=== PATIENT | female | born 1990 | race Caucasian/White ===

== ENCOUNTER 2016-06-17 09:54 | Emergency (ER) | payer OTHER ==
[2016-06-17 10:51] VITALS: BP 113/71
--- NOTE | 2016-06-17 15:01 | UC ---
Yolande Cruz Matthew, scribed for Alyson Chandra DO on 06/17/16 at 1142 . Abdominal Pain Female HPI - HPI Summary HPI Summary: A 26 y/o female presents to [facility] with right sided abdominal pain for the last 2 days. The pain sitting is rated 0/10 in severity. The pain with touching and twisting is rated 4/10 in severity. The pain is worse with eating. Occasionally , she also has muscle spams in the same region. These symptoms started intermittently after having her child ~1.5 years ago. She states her abdomen feels as if there is "trapped gas." For this pain, the patient has been taking TUMS and antacids possibly with mild relieve. She also went to [place] a month ago, where she had an US of this region that returned inconclusive. Associated symptoms include distension of the lower abdomen. The patient denies back pain, fever, chills, diaphoresis, nausea, vomiting, dysuria, urinary symptoms, and chest pain. - History of Current Complaint Chief Complaint: UCAbdominalPain Stated Complaint: ABDOMINAL PAIN Time Seen by Provider: 06/17/16 10:58 Hx Obtained From: Patient Hx Last Menstrual Period: 05/26/16 ?: No Onset/Duration: Lasting Days, Still Present Severity Initially: Mild Severity Currently: Mild Pain Intensity: 4 - with palp Pain Scale Used: 0-10 Numeric Location: Discrete At: RUQ Radiates: No Character: Cramping Aggravating Factor(s): Movement, Other: - touch, twisting Alleviating Factor(s): Nothing Associated Signs and Symptoms: Negative: Diaphoresis, Fever, Chest Pain, Back Pain, Urinary Symptoms, Nausea, Vomiting, Diarrhea Allergies/Adverse Reactions: Allergies Allergy/AdvReac Type Severity Reaction Status Date / Time No Known Allergies Allergy Verified 12/06/14 08:07 Home Medications: Home Medications Multiple Vitamins W/ Minerals [Multivitamin Women] 1 tab PO 06/17/16 [History] Sertraline HCl [Zoloft] 100 mg PO 06/17/16 [History] PMH/Surg Hx/FS Hx/Imm Hx Endocrine History Of: Denies: Diabetes, Thyroid Disease Cardiovascular History Of: Denies: Cardiac Disorders, Hypertension Respiratory History Of: Denies: COPD, Asthma GI/ History Of: Denies: Ulcer Psychological History Of: Reports: Anxiety - Surgical History Surgical History: None - Family History Known Family History: Positive: Hypertension, Diabetes, Other - FHx of Breast CA Negative: Cardiac Disease - Social History Lives: With Family Alcohol Use: None Substance Use Type: None Smoking Status (MU): Never Smoked Tobacco - Immunization History Most Recent Influenza Vaccination: Had Fall 2013 (@ [facility]) Most Recent Tetanus Shot: 10/14/14 Most Recent Pneumonia Vaccination: none Review of Systems Constitutional: Negative Skin: Negative Eyes: Negative ENT: Negative, Dental Pain Respiratory: Negative Cardiovascular: Negative Gastrointestinal: Abdominal Pain, Other - distention of the lower abdomen Genitourinary: Negative Motor: Negative Neurovascular: Negative Musculoskeletal: Negative Neurological: Negative Psychological: Negative All Other Systems Reviewed And Are Negative: Yes Physical Exam Triage Information Reviewed: Yes Appearance: Well-Appearing, No Pain Distress, Well-Nourished Vital Signs: Initial Vital Signs Temp 99.4 F 06/17/16 10:47 Pulse 67 06/17/16 10:47 Resp 18 06/17/16 10:47 BP 113/71 06/17/16 10:47 Pulse Ox 100 06/17/16 10:47 Vital Signs Reviewed: Yes Eyes: Positive: Conjunctiva Clear. Negative: Discharge ENT: Positive: Hearing grossly normal. Negative: Muffled/hoarse voice Dental Exam: Normal Neck: Positive: Supple, Nontender Respiratory: Positive: Lungs clear, Normal breath sounds, No respiratory distress, No accessory muscle use Cardiovascular: Positive: RRR, No Murmur Abdomen Description: Positive: Soft, Other: - Psoas point tenderness that pt identifies as the pain in question; relieved by shortening psoas.. Negative: CVA Tenderness (R), CVA Tenderness (L), Distended, Guarding Musculoskeletal Exam: Normal Neurological: Positive: Alert, Muscle Tone Normal Psychological Exam: Normal Psychological: Positive: Age Appropriate Behavior Skin Exam: Normal Skin: Positive: Other - warm, dry, normal color Abd Pain Female Course/Dx - Differential Dx/Diagnosis Differential Diagnosis: Constipation, Irritable Bowel Syndrome, , Renal Colic Provider Diagnoses: muscle spasm Discharge - Discharge Plan Condition: Stable Disposition: HOME Patient Education Materials: Muscle Spasm (ED) Referrals: Brenden Farah CNM [Primary Care Provider] - If Needed (IF YOUR PROBLEM PERSISTS , YOU MAY WANT TO REQUEST PHYSICAL THERAPY. ) Additional Instructions: YOU WOULD LIKELY BENEFIT FROM OSTEOPATHIC MANIPULATION. WE RECOMMEND THAT YOU FIND AN OSTEOPATHIC PHYSICIAN IN YOUR AREA WHO DOES LYMPHATIC, MYOFASCIAL AND VISCERAL WORK. The documentation as recorded by the Yolande gould Matthew accurately reflects the service I personally performed and the decisions made by , Alyson Chandra DO.
== END 2016-06-17 12:03 | disposition home or self-care (01) ==
LOC: UCEAST 09:54
DX: M62.838 Other muscle spasm (principal)
CPT/HCPCS: 81002; 81025; 99211; G0463

== ENCOUNTER 2018-12-23 07:41 | Inpatient (IN) | payer OTHER ==
[2018-12-23] MEDS ORDERED: Oxytocin in LR* 20 UNITS/1,000 ML BAG IVPB ONE (08:37)
[2018-12-23] MEDS ORDERED: Buffered Lidocaine 1% SYRIN* 1 ML/SYRINGE INTRADERM ONE (08:45)
[2018-12-23] MEDS ORDERED: Lactated Ringers 1000 ML Bag* 1,000 ML IV ONE (08:45)
--- NOTE | 2018-12-23 08:59 | HP ---
General Information - Reason for Visit Post dates for induction - General Information Maternal Age: 28 Grav: 2 Para: 1 SAB: 0 IEA: 0 Estimated Due Date: 12/16/18 Determined By: Early Ultrasound Maternal Blood Type and Rh: O Positive - Results this Serology/RPR Result: Non-Reactive Rubella Result: Immune HBsAg Result: Negative HIV Result: Negative GBS Culture Result: Negative Past Medical History Delivery History: Hx Uncomplicated Vaginal Delivery - SVB 11/2014 Pertinent Past Medical History: See Records Past Medical History Comment: Anxiety, previously on medicine, well managed now Migraines, none recently Pertinent Past Surgical History: None Pertinent Family History: Non-Contributory Family History Comment: HTN hypercholesteremia depression anxiety migraine Maternal grandmother diabetes, breast cancer - Antepartal Records Antepartal Records: Reviewed, Complicated by: - Left breast lump, sono WNL Review of Systems Constitutional: Comfortable CV Complaint: No Respiratory: Shortness of Breath: No Gastrointestinal: No Nausea/Vomiting, Soft Stool Genitourinary: No Dysuria, No Bleeding, No Leaking Fluid Musculoskeletal: No Complaint Neurological: No Headache, No Visual Changes Movement: Normal Exam Allergies/Adverse Reactions: Allergies No Known Allergies Allergy (Verified 12/06/14 08:07) BP 112/76 T 97.4 HR 73 RR 18 O2 100 - Measurements Height: 5 ft 7 in Weight: 159 lb Weight in lbs: [id number] Body Mass Index (BMI): 24.9 Pre- Weight: 125 lb Weight Gained This : 34 lbs and 0 ozs - Exam Breast: Breast Exam Deferred CVA: No CVA Tenderness Extremities: No Edema Heart: Normal Rhythm/Heart Sounds HEENT: No Significant Findings Lungs: Clear Bilaterally Rectal: Rectal Exam Deferred Reflexes: DTR 2+, - - no clonus Thyroid: - - WNL @ entry to care - Abdominal Exam Abdomen Exam: Non-Tender, Fundal Height Consistent with Dates - Ultrasound/Biophysical Profile Ultrasound Status: Not Done Targeted Exam Findings Estimated Weight: 7.5-8lb Cervical Exam: 1cm, 2cm Effacement: 70% Station: 0 Presenting Part: Vertex Membrane Status: Intact Bleeding/Discharge: Bloody Show EFM Findings - External Monitor Findings Baseline Heart Rate: 140 External Monitor Findings: Accelerations Present, No Pattern of Variable or Late Decelerations, Variability Moderate Contractions: Irregular, Mild, < 45 Seconds Contraction Frequency: q 3-6 Assessment/Plan - Assessment IUP @ 41+0 weeks gestation for induction of labor. IBOW. No evidence metabolic acidemia - Plan Plan: Induction, Admit - Anticipate Vaginal Delivery Plan Comment: PARQ discussion pitocin for labor induction, patient in agreement. Encouraged movement and position changes. Anticipate SVB. - Date/Time of Admission Date of Admission: 12/23/18 Time of Admission: 08:45
[2018-12-23] MEDS ORDERED: Lactated Ringers 1000 ML Bag* 1,000 ML IV SCH (09:00)
[2018-12-23] MEDS ORDERED: Oxytocin in LR* 20 UNITS/1,000 ML BAG IVPB SCH (09:00)
[2018-12-23 09:10] LABS: ABS Lymphocytes 1.1 10^3/ul (1.0-4.8); ABS Monocytes 0.6 10^3/ul (0-0.8); ABS Neutrophils 7.2 10^3/ul (1.5-7.7); Eosinophil % 0.5 %; Hematocrit 39 % (35-47); Hemoglobin 13.9 g/dL (12.0-16.0); Lymphocyte % 12.3 %; Mean Corpuscular HGB Conc 36 g/dL (31-36); Mean Corpuscular Hemoglobin 33 pg (27-31); Mean Corpuscular Volume 91 fL (80-97); Platelet Count 153 10^3/uL (150-450); Red Blood Count 4.24 10^6 /uL (3.70-4.87); Red Cell Distribution Width 13 % (10-15); White Blood Count 9.1 10^3/uL (3.5-10.8)
[2018-12-23 09:38] LABS: Urine Benzodiazepine Screen None Detected (None Detect); Urine Opiates Screen None Detected (None Detect)
--- NOTE | 2018-12-23 14:48 | PN ---
Progress Note - Progress Note Date of Service: 12/23/18 Note: S: Patient reports feeling contractions a little stronger, like "intense menstrual cramps". Ate lunch, walking halls. O: Pit @ 16 UCs q 2-4 min FHT 130, Cat 1 A: IUP for induction, not in active labr P: Continue pitocin titration. Anticipate SVB
--- NOTE | 2018-12-24 00:53 | PN ---
Progress Note - Progress Note Date of Service: 12/24/18 Note: S: Patient has been in tub with good relief. States contractions feeling somewhat stronger. Feeling frustrated with slow pace of induction and wondering about AROM vs IV pain medication for rest/sleep. Worried that she won't "like how it feels" with narcotic medication however. O: VE 3/90/0 Pit @ 8 UCs q 2-3 min FHT 125-130, difficult to trace in tub with use of jets but Cat 1 after exiting tub VSS, afebrile A: IUP @ 41+1 weeks gestation for induction of labor, in early labor No evidence metabolic acidemia P: PARQ discussion with patient and of AROM to augment labor. Though she is worried about the pain, is in agreement with assurance can opt for epidural at any time she desires. AROM performed with clear, blood tinged fluid. Plan to rest or get up and move as desired. Call for epidural when uncomfortable. Anticipate SVB
[2018-12-24] MEDS ORDERED: OBEPIDURAL* 250 ML EPIDURAL ONE (01:33)
[2018-12-24] MEDS ORDERED: Lactated Ringers 1000 ML Bag* 1,000 ML IV ONE (01:52)
[2018-12-24] MEDS ORDERED: Lactated Ringers 1000 ML Bag* 500 ML IV PRN ×2 (01:52)
[2018-12-24] MEDS ORDERED: Phenylephrine 40 MCG/ML SYRINGE IV PUSH PRN ×2 (01:52)
[2018-12-24] MEDS ORDERED: Sodium Citrate/Citric Acid* 15 ML UDC PO PRN (01:52)
[2018-12-24] MEDS ORDERED: Famotidine TAB* 20 MG PO PRN (01:52)
[2018-12-24] MEDS ORDERED: Lactated Ringers 1000 ML Bag* 1,000 ML IV SCH ×3 (02:00→07:00)
[2018-12-24] MEDS ORDERED: OBEPIDURAL* 250 ML EPIDURAL SCH (02:00)
[2018-12-24] MEDS ORDERED: Lidocaine 2% w/ EPI 1:200,000* 20 ML VIAL ONE (02:30)
[2018-12-24] MEDS ORDERED: Acetaminophen TAB* 325 MG PO PRN (06:52)
[2018-12-24] MEDS ORDERED: Dibucaine 1% 28.35 GM TUBE PR PRN (06:52)
[2018-12-24] MEDS ORDERED: Witch Hazel PAD* JAR TOPICAL PRN (06:52)
[2018-12-24] MEDS ORDERED: Glycerin ADULT SUPP PR PRN (06:52)
[2018-12-24] MEDS ORDERED: Oxytocin in LR* 20 UNITS/1,000 ML BAG IVPB SCH (07:00)
--- NOTE | 2018-12-24 07:41 | PROCNOTE ---
[facility] OB: Delivery Note - Delivery A Date of : 12/24/18 Time of : 06:16 Ailey Sex: Male - "Lan" Score 1 Minute: 8 Score 5 Minutes: 9 Gestational Age in Weeks and Days at Delivery: 41 Weeks and 1 Days Delivery Method: Spontaneous Vaginal Labor: Spontaneous Did Patient attempt ?: N/A, No Previous Amniotic Fluid: Clear Estimated Blood Loss: 250 Anesthesia/Analgesia: CEI for Labor Delivered By: Cookie Pink - Nursery Level of Nursery: Regular/Bedside - Perineum Perineal Injury Comment: labial lac, repaired Perineal Repair: By Delivering Practioner - Events Delivery Events of Note: Pitocin During Labor - Additional Delivery Notes Additional Delivery Notes: Patient admitted for postdates induction. Pitocin lead to active labor. Patient received epidural as desired after amniotomy. Total length of active labor 6'36 ", pushed 32 min. Baby born OA to CHAVO @ 0616 with shoulders following steadily with maternal efforts. Nuchal cord unwrapped after delivery. Baby to maternal abdomen with spontaneous cry and HR >110. Cord doubly clamped and cut by FOB once pulsations ceased. Placenta delivered with gentle cord traction @ 0621 in [place] presentation. Noted to have 3VC, membranes appearing intact. Fundus firm to massage and with pitocin infusing. Small right labial lac repaired with 2 stitches of 4-0 Vicryl. Mother and baby both stable. Planning to breastfeed.
[2018-12-24] MEDS ORDERED: Docusate CAP* 100 MG ONE (08:18)
[2018-12-24] MEDS ORDERED: Ibuprofen TAB* 600 MG ONE (08:19)
[2018-12-24] MEDS: Docusate CAP* 100 MG PO SCH ×3 (08:21→20:37)
[2018-12-24] MEDS: Ibuprofen TAB* 600 MG PO PRN ×3 (08:22→20:37)
[2018-12-24] MEDS ORDERED: Lidocaine 1% INJ* 10 MG/ML 30 ML SDV ONE (12:21)
[2018-12-25] MEDS: Ibuprofen TAB* 600 MG PO PRN ×2 (05:12→11:56)
[2018-12-25] MEDS: Docusate CAP* 100 MG PO SCH (07:43)
[2018-12-25 07:52] VITALS: BP 110/64
[2018-12-25] MEDS ORDERED: Ferrous Gluconate TAB* 324 MG TAB PO SCH (09:00)
[2018-12-25 09:52] LABS: ABS Lymphocytes 1.1 10^3/ul (1.0-4.8); ABS Monocytes 0.4 10^3/ul (0-0.8); ABS Neutrophils 6.8 10^3/ul (1.5-7.7); Eosinophil % 0.6 %; Hematocrit 33 % (35-47); Hemoglobin 11.5 g/dL (12.0-16.0); Mean Corpuscular HGB Conc 35 g/dL (31-36); Mean Corpuscular Hemoglobin 32 pg (27-31); Mean Corpuscular Volume 93 fL (80-97); Mean Platelet Volume 9.1 fL (7.4-10.4); Platelet Count 138 10^3/uL (150-450); Red Blood Count 3.58 10^6 /uL (3.70-4.87); Red Cell Distribution Width 13 % (10-15); White Blood Count 8.3 10^3/uL (3.5-10.8)
== END 2018-12-25 13:25 | disposition home or self-care (01) | DRG 807 ==
LOC: MCHOBOUT 07:41 → MCHOB 08:41
PROVIDERS: ADMIT Midwife; ATTEND Midwife
PROC: 10E0XZZ Delivery of Products of Conception, External Approach (ICD-10-PCS; principal; 2018-12-24)
PROC: 10907ZC Drainage of Amniotic Fluid, Therapeutic from Products of Conception, Via Natural or Artificial Opening (ICD-10-PCS; 2018-12-24)
PROC: 3E033VJ Introduction of Other Hormone into Peripheral Vein, Percutaneous Approach (ICD-10-PCS; 2018-12-24)
PROC: 4A1HXCZ Monitoring of Products of Conception, Cardiac Rate, External Approach (ICD-10-PCS; 2018-12-24)
PROC: 0UQMXZZ Repair Vulva, External Approach (ICD-10-PCS; 2018-12-24)
DX: O48.0 Post-term pregnancy (principal); Z37.0 Single live birth; Z3A.41 41 weeks gestation of pregnancy; O92.29 Other disorders of breast associated with pregnancy and the puerperium; O70.0 First degree perineal laceration during delivery; O69.81X0 Labor and delivery complicated by cord around neck, without compression, not applicable or unspecified
CPT/HCPCS: 36415; 80307; 85025; 86850; 86900; 86901; A9270-GY